=== PATIENT | female | born 1985 | race Caucasian/White ===

== ENCOUNTER → 2018-07-01 | Outpatient (CLI) | payer BC ==
[~2018-07-01] MED LIST: ACHD5005 PO; MONT10TA21 PO; RT-ALBUINH IH; SUMA100T2 PO
[2018-07-01 10:59] LABS: HEMOGLOBIN 12.9 G/DL (11.5-16.0); RED BLOOD COUNT 4.08 10^6/uL (4.35-5.85); WHITE BLOOD COUNT 6.8 10^3/uL (4.3-11.0)
[2018-07-01 11:00] LABS: BASOPHILS % (AUTO) 1 % (0-10); EOSINOPHILS # (AUTO) 0.3 10^3/uL (0.0-0.3); EOSINOPHILS % (AUTO) 4 % (0-10); HEMATOCRIT 36 % (35-52); LYMPHOCYTES # (AUTO) 2.8 X 10^3 (1.0-4.0); LYMPHOCYTES % (AUTO) 41 % (12-44); MEAN CORPUSCULAR HEMOGLOBIN 32 PG (25-34); MEAN CORPUSCULAR HGB CONC 35 G/DL (32-36); MEAN CORPUSCULAR VOLUME 89 FL (80-99); MEAN PLATELET VOLUME 8.5 FL (7.4-10.4); MONOCYTES # (AUTO) 0.5 X 10^3 (0.0-1.0); MONOCYTES % (AUTO) 7 % (0-12); NEUTROPHILS # (AUTO) 3.2 X 10^3 (1.8-7.8); NEUTROPHILS % (AUTO) 47 % (42-75); PLATELET COUNT 338 10^3/uL (130-400); RED CELL DISTRIBUTION WIDTH 12.7 % (10.0-14.5)
[2018-07-01 11:29] LABS: ALANINE AMINOTRANSFERASE 26 U/L (0-55); ALBUMIN 4.3 GM/DL (3.2-4.5); ALKALINE PHOSPHATASE 55 U/L (40-136); AMYLASE 78 U/L (25-125); BILIRUBIN,TOTAL 0.2 MG/DL (0.1-1.0); BUN/CREATININE RATIO 12; CALCIUM 9.4 MG/DL (8.5-10.1); CARBON DIOXIDE 23 MMOL/L (21-32); CHLORIDE 107 MMOL/L (98-107); CREATININE SERUM 0.66 MG/DL (0.60-1.30); GFR ESTIMATED > 60; GLUCOSE 96 MG/DL (70-105); LIPASE 29 U/L (8-78); POTASSIUM 4.2 MMOL/L (3.6-5.0); SODIUM 138 MMOL/L (135-145); TOTAL PROTEIN 7.3 GM/DL (6.4-8.2)
== END ==
LOC: LAB 10:44
PROVIDERS: ATTEND Surgery
DX: K82.8 Other specified diseases of gallbladder (principal); R10.11 Right upper quadrant pain; R11.0 Nausea
CPT/HCPCS: 36415; 80053; 82150; 83690; 85025

== ENCOUNTER 2018-07-09 07:07 | Outpatient (CLI) | payer BC ==
[~2018-07-09] VITALS: Ht 154.9 cm; Wt 102.1 kg
[2018-07-09] MEDS ORDERED: SUMA100T2 PO (10:05)
[2018-07-09] MEDS ORDERED: RT-ALBUINH IH (10:05)
[2018-07-09] MEDS ORDERED: MONT10TA21 PO (10:05)
[2018-07-16] MEDS ORDERED: ACHD5005 PO (09:29)
== END 2018-07-09 13:00 | disposition home or self-care (01) ==
LOC: PREOP 07:07
PROVIDERS: ATTEND Surgery
DX: Z01.818 Encounter for other preprocedural examination (principal)

== ENCOUNTER 2018-07-16 06:00 | Day surgery (SDC) | payer BC ==
[~2018-07-16] VITALS: Ht 154.9 cm; Wt 102.1 kg
[~2018-07-16 06:00] MED LIST changes: -ACHD5005 PO
--- OUTSIDE RECORDS SUMMARY | 2018-07-16 06:04 | XMS REPORT | Clinical Summary ---
Author Author Admin, [facility] Organization [facility] Address Unknown Phone Unavailable Allergies, Adverse Reactions, Alerts Allergy Name Reaction Description Start Date Severity Status Provider Allergies Unknown Conditions or Problems Problem Name Problem Code Onset Date Status Entry Date Provider Comment Standard Description Annotate Problems Unknown Active Medication List Medication Instructions Start Date Stop Date Generic Name NDC Status Provider Patient Instruction Drug Treatment Unknown - unknown Procedures Code Procedure Name Date Entry Date Standard Description CPT-37864 Fluzone Quadrivalent Intramuscular Suspension 0.5 ML 14: 01:23 CDT
--- OUTSIDE RECORDS SUMMARY | 2018-07-16 06:04 | XMS REPORT | Clinical Summary ---
Author Author Admin, [facility] Organization [facility] Address Unknown Phone Unavailable Allergies, Adverse Reactions, Alerts Allergy Name Reaction Description Start Date Severity Status Provider No Known Allergies Romina Lyn RPT,RMA Conditions or Problems Problem Name Problem Code Onset Date Status Entry Date Provider Comment Standard Description Annotate Sinusitis 461.9 Active Rajesh Fall MD Acute sinusitis, unspecified Medication List Medication Instructions Start Date Stop Date Generic Name NDC Status Provider Patient Instruction PROVENTIL HFA 108 (90 BASE) MCG/ACT INH AERS 1-2 puff q4-6 hours prn shortness of breath ALBUTEROL SULFATE 93167560538 Active Rajesh Fall MD Active ZITHROMAX Z-GUS 250 MG TABS 2 today, then 1 daily for 4 days 2014 AZITHROMYCIN 28958900600 No Longer Active Rajesh Fall MD Active CONTRAVE 8-90 MG ORAL SD10C-SZJ Take 1 po daily for 1 week, then 1 po bid for 1 week, then 2 q am and 1 pm for 1 week, the 2 po bid thereafter NALTREXONE-BUPROPION HCL 93014953878 Active Rajesh Fall MD Active METFORMIN HCL 1000 MG TABS 1 tablet by mouth daily METFORMIN HCL 36885472533 Active Rajesh Fall MD Active SERTRALINE HCL 50 MG ORAL TABS 1 tablet orally daily SERTRALINE HCL 22557279054 Active Rajesh Fall MD Active ZITHROMAX Z-GUS 250 MG TABS 2 today, then 1 daily for 4 days 2014 ZITHROMAX Z-GUS 250 MG TABS 3893121 AZITHROMYCIN Inactive Vital Signs Date Name Value Unit Range Description blood pressure, diastolic - 8462-4 80 mm[Hg] BP mays blood pressure, systolic - 8480-6 114 mm[Hg] BP sys pulse rate E&M - 8867-4 121 /min Heart rate temperature E&M 98.5 [degF] Body temperature weight E&M - 3141-9 215 [lb_av] Weight Measured Encounters Code Encounter Date Provider Facility CPT-64624 Level 2 New Patient 14:14:21 CDT Rajesh Fall MD [facility] Procedures Code Procedure Name Date Entry Date Standard Description CPT-12645 Fluzone Quadrivalent Intramuscular Suspension 0.5 ML 14: 01:23 CDT
--- OUTSIDE RECORDS SUMMARY | 2018-07-16 06:04 | XMS REPORT | Clinical Summary ---
Author Author Admin, [facility] Organization [facility] Address Unknown Phone Unavailable Allergies, Adverse Reactions, [...] Procedure Name Date Entry Date Standard Description CPT-51017 Fluzone Quadrivalent Intramuscular Suspension 0.5 ML 14: 01:23 CDT
--- OUTSIDE RECORDS SUMMARY | 2018-07-16 06:04 | XMS REPORT | Clinical Summary ---
Author Author Admin, [facility] Organization [facility] Address Unknown Phone Unavailable Allergies, Adverse Reactions, [...] Procedure Name Date Entry Date Standard Description CPT-40121 Fluzone Quadrivalent Intramuscular Suspension 0.5 ML 14: 01:23 CDT
--- OUTSIDE RECORDS SUMMARY | 2018-07-16 06:05 | XMS REPORT | Continuity of Care Document ---
Demographics x Preferred Language Unknown Marital Status Unknown Faith Affiliation Unknown Race Unknown Ethnic Group Unknown Author Author [facility] Organization [facility] Address Unknown Phone Unavailable Allergies Active Description Code Type Severity Reaction Onset Reported/Identified Relationship to Patient Clinical Status Yes No known drug allergies [id number] ND N/A N/A Confirmed or Verified Yes No known allergies Drug N/A N/A Medications There is no data. 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/02/2018 ALVARADO SEWELL, OUMOU [place] K82.8 OTHER SPECIFIED DISEASES OF GALLBLADDER 07/02/2018 ALVARADO SEWELL, OUMOU [place] R10.11 RIGHT UPPER QUADRANT PAIN 07/02/2018 ALVARADO SEWELL, OUMOU [place] R11.0 NAUSEA Procedures Code Description [place] [address] OB US, FOLLOW-UP, PER FETUS 01/20/2014 27012 COMPLETE CBC W/AUTO DIFF WBC 02/10/2014 60909 GLYCOSYLATED HEMOGLOBIN TEST 03/23/2014 Results Test Result Range BACTERIAL ID - 11/20/13 00:00 BACID SEE NOTE CBC WITH DIFF - 02/02/14 00:00 BASO% 0.2 % 0-2 EOS% 1.3 % 0-7.0 HCT 37.5 % 36.9-47.0 HGB 13.1 G/DL 12.0-16.0 LYMPH% 25.0 % 20-40 MCH 30.8 PG 27-31 MCHC 34.9 G/DL 33-37 MCV 88.2 FL 81-99 MONO% 7.1 % 0-10.0 MPV 9.0 FL 7.3-10.4 NEUTRO% 66.4 % 40-70 PLT 259 10^3u 130-400 RBC 4.3 10^6u 4.2-5.4 RDW 13.7 % 11.5-15.5 WBC 8.5 10^3u 4.8-10.8 NEUTRO# 5.6 10^3u 1.5-7.5 LYMPH# 2.1 10^3u 0.9-4.0 MONO# 0.6 10^3u 0-0.8 EOS# 0.1 10^3u 0-0.6 BASO# 0.0 10^3u 0-0.1 TYPE AND SCREEN - 02/02/14 00:00 ABO A ABSCRN N Negative RH P CROSSMATCH - 02/02/14 00:00 CRSMTCH COMP Compatible CROSSMATCH - 02/02/14 00:00 CRSMTCH COMP Compatible UA - 02/02/14 00:00 PH 6.5 4.5-8.0 SG 1.006 UABILI NEGATIVE UABLD NEGATIVE UACOLOR YEL UAGLU NEGATIVE UAKET NEGATIVE UALEUK NEGATIVE UANIT NEGATIVE UAURO 0.2 0-0.2 CLARITY CL PROTEIN NEGATIVE UA WBC R05 UA RBC R05 SQUAMOUS EPITHELIAL CELLS FEW BACTERIA OCC CBC - 02/03/14 00:00 HCT 30.1 % 36.9-47.0 HGB 10.3 G/DL 12.0-16.0 MCH 30.8 PG 27-31 MCHC 34.2 G/DL 33-37 MCV 90.1 FL 81-99 MPV 8.4 FL 7.3-10.4 PLT 187 10^3u 130-400 RBC 3.3 10^6u 4.2-5.4 RDW 13.9 % 11.5-15.5 WBC 7.9 10^3u 4.8-10.8 ELECTROLYTES - 02/03/14 00:00 CL 105 MEQ/L 98-107 CO2 27.9 MEQ/L 22-28 K 4.0 MEQ/L 3.5-5.1 NA 138 MEQ/L 134-145 GLU - 02/03/14 00:00 GLU 78 MG/DL 70-105 CBC WITH DIFF - 02/09/14 00:00 BASO% 0.3 % 0-2 EOS% 2.5 % 0-7.0 HCT 34.3 % 36.9-47.0 HGB 11.5 G/DL 12.0-16.0 LYMPH% 27.8 % 20-40 MCH 30.3 PG 27-31 MCHC 33.5 G/DL 33-37 MCV 90.3 FL 81-99 MONO% 5.5 % 0-10.0 MPV 7.8 FL 7.3-10.4 NEUTRO% 63.9 % 40-70 PLT 307 10^3u 130-400 RBC 3.8 10^6u 4.2-5.4 RDW 13.5 % 11.5-15.5 WBC 7.3 10^3u 4.8-10.8 NEUTRO# 4.6 10^3u 1.5-7.5 LYMPH# 2.0 10^3u 0.9-4.0 MONO# 0.4 10^3u 0-0.8 EOS# 0.2 10^3u 0-0.6 BASO# 0.0 10^3u 0-0.1 HA1C - 03/23/14 00:00 HA1C 5.8 % 4.5-6.2 TSH - 06/21/14 00:00 TSH 1.92 UIUML 0.36-3.74 FREE T4 - 06/21/14 00:00 FT4 0.93 NG/DL 0.76-1.46 HA1C - 06/21/14 00:00 HA1C 5.4 % 4.5-6.2 Encounters ACCT No. Visit Date/Time Discharge Status Pt. Type Provider Facility Loc./Unit Complaint [id number] 06/21/2014 10:55:00 06/21/2014 10:55:00 DIS Outpatient ARISTIDES HANNON [facility] [id number] 03/23/2014 00:00:00 03/23/2014 00:00:00 DIS Outpatient ARISTIDES HANNON [facility] [id number] 02/09/2014 00:00:00 02/09/2014 00:00:00 DIS Outpatient CECIL MAYES [facility] [id number] 02/02/2014 18:57:00 02/05/2014 11:40:00 DIS Inpatient CECIL MAYES [facility] OB [id number] 01/20/2014 00:00:00 01/20/2014 00:00:00 DIS Outpatient CECIL MAYES [facility] [id number] 01/06/2014 12:23:00 01/06/2014 12:23:00 DIS Outpatient CECIL MAYES [facility] [id number] 12/16/2013 10:09:00 12/16/2013 10:09:00 DIS Outpatient CECIL MAYES [facility] [id number] 09/12/2013 00:00:00 Document Registration [id number] 09/12/2013 00:00:00 Document Registration [id number] 09/12/2013 00:00:00 Document Registration [id number] 09/12/2013 00:00:00 Document Registration [id number] 09/12/2013 00:00:00 Document Registration [email or web address] 05/03/2017 04:55:12 ACT Document Registration [id number] 07/01/2018 10:44:00 07/01/2018 23:59:59 CLS Outpatient OUMOU CHILDERS MD [facility] LAB NAUSEA,GALLBLADDER DYSKENESIA [id number] 07/16/2018 08:00:00 PEN Preadmit [facility] [id number] 04/11/2017 16:07:01 ACT Unknown [id number] 06/06/2018 10:24:08 06/06/2018 23:59:59 DIS Outpatient DERRICK SUKUMAR Errol [facility] SELINA RAD ruq pain [id number] 05/30/2018 07:54:22 05/30/2018 23:59:59 DIS Outpatient MEZA, SUKUMAR L [facility] S[facility]INA RAD ruq pain [id number] 02/17/2018 15:40:48 02/17/2018 23:59:59 DIS Outpatient Martell [facility] xray [id number] 02/17/2018 15:08:34 02/17/2018 23:59:59 DIS Outpatient Martell [facility] [id number] 09/16/2017 15:21:18 09/16/2017 23:59:59 DIS Outpatient BrightJordneSwapna Yumiko [facility] [id number] 08/26/2017 08:30:00 08/26/2017 23:59:59 CLS Outpatient BrightJordenSwapna Yumiko [facility] [id number] 08/20/2017 11:20:28 08/20/2017 23:59:59 DIS Outpatient CECIL MAYES [facility] lab [id number] 08/20/2017 09:52:16 08/20/2017 23:59:59 DIS Outpatient CECIL MAYES [facility] [id number] 08/19/2017 14:30:00 08/19/2017 23:59:59 DIS Outpatient Swapna Bright [facility] [id number] 08/14/2017 08:55:14 08/14/2017 23:59:59 DIS Outpatient Deangelo Swapna Yumiko [facility] SELINA RT SOB,Hx Asthma [id number] 08/05/2017 14:11:35 08/05/2017 23:59:59 DIS Outpatient Deangelo Swapna E [facility] [id number] 08/02/2017 09:59:00 08/02/2017 11:47:00 DIS Emergency SHARRI WASHINGTON [facility] SELINA ED sob chest pain [id number] 06/11/2017 15:45:00 06/11/2017 23:59:59 CLS Outpatient Justyna Fregoso [facility] [id number] 11/05/2016 14:11:17 11/05/2016 23:59:59 CLS Outpatient CECIL MAYES [facility] SELINA [facility] [id number] 11/05/2016 14:16:43 Document Registration
[2018-07-16] MEDS ORDERED: ceFAZolin 2 GM IV Premixed 50 ML IV ONE (06:15)
[2018-07-16] MEDS ORDERED: metroNIDAZOLE 500MG/100ML IVPB 100 ML IV ONE (06:15)
[2018-07-16 06:41] LABS: BASOPHILS % (AUTO) 1 % (0-10); EOSINOPHILS # (AUTO) 0.3 10^3/uL (0.0-0.3); EOSINOPHILS % (AUTO) 5 % (0-10); HEMATOCRIT 39 % (35-52); HEMOGLOBIN 13.2 G/DL (11.5-16.0); LYMPHOCYTES # (AUTO) 2.9 X 10^3 (1.0-4.0); LYMPHOCYTES % (AUTO) 44 % (12-44); MEAN CORPUSCULAR HEMOGLOBIN 31 PG (25-34); MEAN CORPUSCULAR HGB CONC 34 G/DL (32-36); MEAN CORPUSCULAR VOLUME 91 FL (80-99); MEAN PLATELET VOLUME 8.4 FL (7.4-10.4); MONOCYTES # (AUTO) 0.5 X 10^3 (0.0-1.0); MONOCYTES % (AUTO) 8 % (0-12); NEUTROPHILS # (AUTO) 2.9 X 10^3 (1.8-7.8); NEUTROPHILS % (AUTO) 43 % (42-75); PLATELET COUNT 306 10^3/uL (130-400); RED CELL DISTRIBUTION WIDTH 12.7 % (10.0-14.5); WHITE BLOOD COUNT 6.6 10^3/uL (4.3-11.0)
[2018-07-16] MEDS ORDERED: LIDOCAINE PF 2% 2 ML (XYLOCAINE) VIAL ONE ×2 (06:46)
[2018-07-16] MEDS ORDERED: fentaNYL INJECTION 100 MCG/2 ML AMP ONE ×2 (06:46→08:17)
[2018-07-16] MEDS ORDERED: LACTATED RINGERS 1,000 ML IV ONE (06:46)
[2018-07-16] MEDS ORDERED: proPOfol 200 MG/20 ML (DIPRIVAN) VIAL IV ONE (06:46)
[2018-07-16] MEDS ORDERED: ROCURONIUM 10 MG/ML 5 ML SYRINGE IV ONE (06:46)
[2018-07-16] MEDS ORDERED: MIDAZOLAM 2 MG/2 ML (VERSED) VIAL ONE (06:46)
[2018-07-16] MEDS ORDERED: DEXAMETHASONE 10 MG/ML (DECADRON) 1 ML VIAL ONE (06:53)
[2018-07-16] MEDS ORDERED: SEVOFLURANE (ULTANE) 15 ML INHAL SOLN ONE ×7 (06:53→09:25)
[2018-07-16] MEDS ORDERED: BUP/EPI 0.5% 1:200,000 (SENSORCAINE) 30 ML VIAL ONE (06:55)
[2018-07-16] MEDS ORDERED: SCOPOLAMINE 1.5 MG (TRANSDERM-SCOP) PATCH TOP ONE (07:00)
[2018-07-16] MEDS ORDERED: ONDANSETRON 4 MG/2 ML (SDV) Z0FRAN IV ONE (07:00)
[2018-07-16] MEDS ORDERED: FAMOTIDINE 20MG/2ML IV (PEPCID) IV ONE (07:00)
[2018-07-16] MEDS ORDERED: CATHETER FLUSH 10 ML SYR IV PRN (07:00)
[2018-07-16] MEDS: LACTATED RINGERS 1,000 ML IV PRN ×2 (07:15→08:50)
[2018-07-16 07:37] VITALS: BP 128/83
--- NOTE | 2018-07-16 07:46 | Progress Note-Pre Operative ---
Pre-Operative Progress Note H&P Reviewed The H&P was reviewed, patient examined and no changes noted. Date Seen by Provider: Jul 01, 2018 Time Seen by Provider: 11:00 Date H&P Reviewed: Jul 16, 2018 Time H&P Reviewed: 07:45 Pre-Operative Diagnosis: Chronic Cholecystitis OUMOU CHILDERS MD Jul 16, 2018 07:46
[2018-07-16] MEDS ORDERED: PHENYLEPHRINE 100 MCG/ML 10 ML (ANESTHESIA) SYR ONE (08:49)
[2018-07-16] MEDS ORDERED: NEOSTIGMINE 1 MG/ML 5 ML SYRINGE ONE (09:06)
[2018-07-16] MEDS ORDERED: GLYCOPYRROLATE 0.2 MG/ML (ROBINUL) 2 ML VIAL ONE (09:06)
--- NOTE | 2018-07-16 09:28 | Operative Report ---
Operative Report Date of Procedure/Surgery Jul 16, 2018 Surgeon (s) OUMOU CHILDERS MD Metal Buildings Assembler (s): Deandre Fitzpatrick( Med stud III) Post-Operative Diagnosis Same Procedure Performed Robotic-assisted cholecystectomy Description of Procedure Anesthesia Type: General Estimated blood loss (mL): Minimal Specimen(s) collected/removed Gallbladder Description of the Procedure Indication for the procedure: This lady presented with chronic, acalculous cholecystitis reduced ejection fraction of the gallbladder at the bedside 3 percent, with severe symptoms. Therefore, it was felt reasonable to offer cholecystectomy. Informed consent was obtained after reviewing the operative details and complications of wound infection, bile leak and persistence of her symptoms. Worsening of her current diarrhea was also highlighted. Description of procedure: She was placed supine on the operative table and general anesthesia induced. 2 g of Ancef and 500 mg of Flagyl were administered intravenously as prophylaxis against wound infection. Sequential compression devices were placed around her legs, to minimize the risk of venous thrombosis. Abdomen was prepared and draped in the usual sterile manner. A supraumbilical incision was made and pneumoperitoneum established using a Veress needle. Intra -abdominal pressure was maintained at 15 mmHg, using carbon dioxide insufflation. A 12 mm trocar was placed and anatomy visualized using the 30, high definition laparoscope, associated with da Kiki system. Under direct view , I placed an 8 mm trocar over each side of the abdomen followed by a 5 mm trocar over the left subcostal region. The patient was then turned into reverse Trendelenburg position, with the right side tilted up The robotic system was then in place. The fundus of the gallbladder was retracted cephalad and infundibulum grasped with Cadiere forceps. Peritoneum overlying Calot's triangle was incised using the hook cautery, delineating the cystic duct and artery. Both were divided between locking clips. Cholecystectomy was then completed using the hook cautery. The gallbladder was then placed in an Endo Catch bag and removed via the supraumbilical trocar site. The fascia over this incision was closed using an #1 Vicryl under direct view, using a Cristofer Gracia device. Skin incisions were closed using 4-0 Vicryl, in a subcuticular fashion. 0.5 percent Marcaine with epinephrine was infiltrated along the incisions, both preemptively and at the conclusion of the operation. She tolerated the procedure well, was extubated in the operating room and taken to the recovery room in a stable condition. Findings of the Procedure See operative report Allergies and Home Medications Allergies Coded Allergies: No Known Drug Allergies (Unverified , 07/09/18) Home Medications Albuterol Sulfate 1 Puff Puff, 2 PUFF IH Q4H PRN for SHORTNESS OF BREATH, ( Reported) 1 PUFF = 90 MCG Montelukast Sodium 10 Mg Tablet, 10 MG PO DAILY, (Reported) Sumatriptan Succinate 100 Mg Tablet, 100 MG PO PRN PRN for MIGRAINE, (Reported) Patient Home Medication List Home Medication List Reviewed: Yes OUMOU CHILDERS MD Jul 16, 2018 09:28
[2018-07-16] MEDS ORDERED: ACHD5005 PO (09:29)
--- NOTE | 2018-07-16 09:30 | Discharge Inst-Simple/Standard ---
Discharge Inst-Standard Discharge Medications New, Converted or Re-Newed RX: RX on Chart Patient Instructions/Follow Up Plan of Care/Instructions/FU: Band-Aids off in 48 hours. Incentive spirometry. Follow-up in 3 weeks. Activity as Tolerated: Yes Discharge Diet: No Restrictions OUMOU CHILDERS MD Jul 16, 2018 09:30
[2018-07-16] MEDS ORDERED: ONDANSETRON 4 MG/2 ML (SDV) Z0FRAN IVP PRN (09:45)
[2018-07-16] MEDS ORDERED: morphine INJ 10 MG/ML 1ML (SYR OR VIAL) IVP ONE (09:45)
[2018-07-16] MEDS ORDERED: HYDROmorphone 2 MG/ML VIAL (DILAUDID) IV ONE (09:45)
[2018-07-16 10:45] VITALS: BP 112/69
[2018-07-16 11:15] VITALS: BP 96/60
--- NOTE | 2018-07-16 11:38 | Anesthesia-General Post-Op ---
General Patient Condition Mental Status/LOC: Same as Preop Cardiovascular: Satisfactory Nausea/Vomiting: Absent Respiratory: Satisfactory Pain: Controlled Complications: Absent Post Op Complications Complications None Follow Up Care/Instructions Patient Instructions None needed. Anesthesia/Patient Condition Patient Condition Patient is doing well, no complaints, stable vital signs, no apparent adverse anesthesia problems. No complications reported per nursing. D/C home per [facility] Criteria: Yes MARIANA TRIPP CRNA Jul 16, 2018 11:38
[2018-07-16 11:45] VITALS: BP 112/61
== END 2018-07-16 12:05 | disposition home or self-care (01) ==
LOC: SDC 06:00
PROVIDERS: ATTEND Surgery
DX: K81.1 Chronic cholecystitis (principal); J45.909 Unspecified asthma, uncomplicated; K21.9 Gastro-esophageal reflux disease without esophagitis; K52.9 Noninfective gastroenteritis and colitis, unspecified; Z79.899 Other long term (current) drug therapy; Z11.2 Encounter for screening for other bacterial diseases
CPT/HCPCS: 36415; 84703; 85025; 87081; 88304; 94664